=== PATIENT | female | born 1950 | race Caucasian/White ===

== ENCOUNTER 2018-12-20 21:51 | Emergency (ER) | payer MEDICARE ==
[~2018-12-20] VITALS: Ht 160 cm; Wt 53.6 kg
[2018-12-20 21:55] VITALS: TEMP 98.4
[2018-12-20] MEDS ORDERED: NORCO 325 MG-51 TAB PO (22:41)
[2018-12-20] MEDS ORDERED: LIDODERM 5% PATC1 EA TP (22:51)
[2018-12-20 22:52] VITALS: BP 123/84; PULSE 80
== END 2018-12-20 22:52 | disposition home or self-care (01) ==
LOC: COL.ER 21:51
DX: S30.0XXA Contusion of lower back and pelvis, initial encounter (principal); W10.9XXA Fall (on) (from) unspecified stairs and steps, initial encounter; Y92.009 Unspecified place in unspecified non-institutional (private) residence as the place of occurrence of the external cause
CPT/HCPCS: J1885

== ENCOUNTER 2022-01-20 04:25 | Observation (INO) | payer MEDICARE ==
[~2022-01-20] VITALS: Ht 160 cm; Wt 53.7 kg
[~2022-01-20 04:25] MED LIST: LIDODERM 5% PATC1 EA TP; NORCO 325 MG-51 TAB PO
[2022-01-20 05:16] LABS: COLLECTION METHOD CLEAN CATCH
[2022-01-20 05:18] LABS: BASO # 0.1 K/mm3 (0.0-0.2); BASO % 0.7 % (0.0-2.0); EOS # 0.6 K/mm3 (0.0-0.7); EOS % 5.5 % (0.0-4.0); GRAN # 7.1 K/mm3 (1.4-6.5); GRAN % 66.9 % (42.2-75.2); HEMATOCRIT 44.1 % (37.0-47.0); HEMOGLOBIN 14.7 g/dl (12.5-16.0); LYMPH # 2.2 K/mm3 (1.2-3.4); LYMPH % 20.8 % (20.0-51.0); MEAN CELL VOLUME 91 fl (80.0-100.0); MEAN CORPUSCULAR HEMOGLOBIN 30 pg (27-31); MEAN CORPUSCULAR HGB CONC 33 g/dl (33.0-37.0); MEAN PLATELET VOLUME 10.7 fl (7.4-10.4); MONO # 0.6 K/mm3 (0.1-0.6); MONO % 5.8 % (1.7-9.3); PLATELET COUNT 321 K/mm3 (130-400); RED BLOOD COUNT 4.86 M/mm3 (4.10-5.30); REDCELL DISTRIBUTION WIDTH-CV 13.6 % (11.5-14.5)
[2022-01-20 05:25] LABS: MUCOUS Present (NOT PRESENT); SQUAMOUS EPITHELIAL 0-2 /hpf (0-10); URINE BACTERIA None Seen /hpf (NONE SEEN); URINE RBC 0-2 /hpf (0-2)
[2022-01-20 05:27] LABS: URINE APPEARANCE Clear (CLEAR/HAZY); URINE BLOOD Negative (NEGATIVE); URINE COLOR Yellow (YELLOW); URINE GLUCOSE Negative (NEGATIVE); URINE KETONE Negative (NEGATIVE); URINE NITRATE Negative (NEGATIVE); URINE PROTEIN(semi-quant) Negative (NEGATIVE); URINE UROBILINOGEN 0.2 E.U/dL (0.2-1.0)
[2022-01-20 05:42] LABS: BILIRUBIN,TOTAL 0.4 mg/dL (0.2-1.2); CALCIUM 10.4 mg/dL (8.4-10.2); CREATININE, serum 0.99 mg/dL (0.57-1.11); POTASSIUM 4.4 mmol/L (3.5-4.5); TOTAL PROTEIN 7.3 gm/dL (6.2-8.1)
[2022-01-20 08:56] VITALS: BP 118/46; PULSE 71; TEMP 97.8
[2022-01-20] MEDS ORDERED: MASON NATURAL2000 IU PO (09:16)
[2022-01-20] MEDS ORDERED: OSCAL 500 TAB500 MG (09:16)
[2022-01-20 11:46] VITALS: BP 112/64; PULSE 67; TEMP 98.7
--- NOTE | 2022-01-20 12:03 | NUR ---
PATIENT ALERT AND ORIENTEX X4. VSS. PATIENT COMPLAINS OF PAIN 8/, REQUESTS PAIN MEDICATION. PATIENT ORIENTED TO FLOOR AND ROOM. PATIENT HAS LR RUNNING AT 125ML/HOUR IN LEFT WRIST. PATIENT NPO FOR SBO. PATIENT RESTING IN BED WITH CALL LIGHT NEAR.
--- NOTE | 2022-01-20 12:42 | NUR ---
NOTIFIED DR. RENE OF PT CONDITION AND NEW ORDERS RECIEVED. HOSPITALIST CONSULTED .
[2022-01-20 13:11] LABS: BASO % 0.4 % (0.0-2.0); EOS # 0.2 K/mm3 (0.0-0.7); EOS % 2.8 % (0.0-4.0); GRAN # 4.6 K/mm3 (1.4-6.5); GRAN % 61.7 % (42.2-75.2); HEMATOCRIT 43.3 % (37.0-47.0); HEMOGLOBIN 14.1 g/dl (12.5-16.0); LYMPH # 2.3 K/mm3 (1.2-3.4); LYMPH % 31.2 % (20.0-51.0); MEAN CELL VOLUME 92 fl (80.0-100.0); MEAN CORPUSCULAR HEMOGLOBIN 30 pg (27-31); MEAN CORPUSCULAR HGB CONC 33 g/dl (33.0-37.0); MEAN PLATELET VOLUME 11.1 fl (7.4-10.4); MONO # 0.3 K/mm3 (0.1-0.6); MONO % 3.6 % (1.7-9.3); PLATELET COUNT 301 K/mm3 (130-400); REDCELL DISTRIBUTION WIDTH-CV 13.6 % (11.5-14.5)
[2022-01-20 13:27] LABS: ALANINE AMINOTRANSFERASE 18 U/L (0-55); ALBUMIN 3.5 gm/dL (3.4-4.8); ALKALINE PHOSPHATASE 89 U/L (40-150); ANION GAP 9 mmol/L (7-16); AST,SGOT 19 U/L (5-34); BILIRUBIN,TOTAL 0.5 mg/dL (0.2-1.2); BLOOD UREA NITROGEN 14 mg/dL (10-20); CALCIUM 9.9 mg/dL (8.4-10.2); CARBON DIOXIDE 26 mmol/L (23-31); CHLORIDE 103 mmol/L (98-107); CREATININE, serum 1.11 mg/dL (0.57-1.11); GLUCOSE 270 mg/dL (70-99); POTASSIUM 3.8 mmol/L (3.5-4.5); SODIUM 138 mmol/L (136-145); TOTAL PROTEIN 6.6 gm/dL (6.2-8.1)
[2022-01-20 13:36] LABS: TROPONIN-I < 0.010 ng/mL (0.00-0.033)
[2022-01-20 15:35] VITALS: BP 127/66; PULSE 67; TEMP 96.8
--- NOTE | 2022-01-20 19:11 | NUR ---
RECEIVED CHANGE OF SHIFT REPORT FROM DAY SHIFT RN.
[2022-01-20 20:01] VITALS: BP 103/53; PULSE 77; TEMP 98.3
[2022-01-20 23:49] VITALS: BP 108/55; PULSE 78; TEMP 98.5
--- NOTE | 2022-01-21 00:02 | NUR ---
PATIENT REPORTED TO STAFF THAT SMALL FORMED STOOL PASSED THROUGH ILEOSTOMY.
[2022-01-21 04:08] VITALS: BP 109/59; PULSE 78; TEMP 98.6
--- NOTE | 2022-01-21 04:21 | NUR ---
PATIENT REPORTS SMALL AMOUNT OF OUTPUT IN ILEOSTOMY BAG, OBSERVED OUTPUT AIR WHEN ILEOSTOMY BAG CHECKED. DENIES NAUSEA, REPORTS HEADACHE HAS RETURNED WITH ABD CRAMPING DISCOMFORT, SEE MAR FOR PAIN MEDS GIVEN.
--- NOTE | 2022-01-21 05:56 | NUR ---
PATIENT RESTING QUIETLY AFTER IV MORPHINE GIVEN, BREATHING NONLABORED AND DOES NOT WAKE WHEN NURSING ENTER ROOM ON ROUNDS. IV FLUIDS RUNNING WITH NO PROBLEMS.
[2022-01-21 06:32] LABS: CALCIUM 8.7 mg/dL (8.4-10.2); CREATININE, serum 0.86 mg/dL (0.57-1.11); POTASSIUM 3.8 mmol/L (3.5-4.5)
--- NOTE | 2022-01-21 06:58 | NUR ---
CHANGE OF SHIFT REPORT GIVEN TO DAY SHIFT RNROSHAN.
[2022-01-21 07:05] LABS: BASO % 0.2 % (0.0-2.0); EOS # 0.2 K/mm3 (0.0-0.7); EOS % 2.3 % (0.0-4.0); GRAN # 7.2 K/mm3 (1.4-6.5); HEMATOCRIT 41.5 % (37.0-47.0); HEMOGLOBIN 13.2 g/dl (12.5-16.0); LYMPH # 1.4 K/mm3 (1.2-3.4); LYMPH % 14.4 % (20.0-51.0); MEAN CELL VOLUME 95 fl (80.0-100.0); MEAN CORPUSCULAR HEMOGLOBIN 30 pg (27-31); MEAN CORPUSCULAR HGB CONC 32 g/dl (33.0-37.0); MEAN PLATELET VOLUME 11.1 fl (7.4-10.4); MONO # 0.7 K/mm3 (0.1-0.6); MONO % 6.9 % (1.7-9.3); PLATELET COUNT 269 K/mm3 (130-400); RED BLOOD COUNT 4.35 M/mm3 (4.10-5.30); REDCELL DISTRIBUTION WIDTH-CV 13.8 % (11.5-14.5)
[2022-01-21 07:32] VITALS: BP 113/57; TEMP 98.3
--- NOTE | 2022-01-21 09:43 | NUR ---
Initial visit; Patient very sweet and states she is doing "ok." Patient and Manager Of Broadcast Content visited for a short time and Manager Of Broadcast Content offered God's blessings and thorough healing for her.
--- NOTE | 2022-01-21 10:19 | NUR ---
Shipping Clerk met with patient to discuss discharge planning. Patient lives in [place] with her , Lamont and son, Nomi (ph#[phone]). Patient sees Dr. Levy for primary care and obtains medications from [facility] with no difficulties. Patient does not use any DME, besides supplies for her ileostomy and is independent with ADLS. Patient states she keeps the house, does the laundry, and gardens. Patient advised her son, Nomi is DPOA-HC. Patient plans to return home at time of discharge. PT recommending home. Discharge Plan: Home
[2022-01-21 11:06] VITALS: BP 91/46; TEMP 98.5
--- NOTE | 2022-01-21 15:08 | NUR ---
Medical Imaging Specialist met with patient to present ESTRADA form. Patient requested time to read it. Melani MURGUIA also followed up to review ESTRADA. Patient declined to sign. SW placed form in chart.
[2022-01-21 15:38] VITALS: BP 112/58; PULSE 76; TEMP 97.8
[2022-01-21 19:43] VITALS: BP 122/57; PULSE 85; TEMP 98.8
--- NOTE | 2022-01-21 22:13 | NUR ---
Around 1999, primary nurse notified this nurse that patient was upset with cares and wanting to leave. This nurse went to room to talk to patient. and son in room with patient. Asked patient to explain to this nurse the situation. tated that she was here for a small bowel obstruction, which she does have a history of. Stated that she had not been tolerating a clear liquid diet at all today, as it was making her nauseous and have emesis. Stated that they put he on a low fiber diet, but, again, was not tolerating anything orally. Patient's MAR shows that she was given PRN Zofran around 1800. Patient continues to have nausea. Asked patient is she had ever had Phenergan for nausea, and stated that she did not know. Patient requesting IV fluids. This nurse stated that I would call the physician and try and get somehting else besides Zofran for her nausea, and to get her IV fluids restarted. Patient's stated that it did not matter what staff did at this point, that they were leaving the hospital to go to another hospital and wanted their discharge paperwork. Explained that we needed to call the physician and see if they would give discharge orders or if they would need to sign AMA paperwork, and they voiced undersanding. Updated ELBA Johns, and state that Dr. Gould needed to give the orders. Called Dr. Gould at approximately 2014 and updated on situation. Since patient is not medically cleared to leave and they are refusing care, AMA paperwork needed to be signed. Brought in paperwork to be signed for patient and signed at 2030. Requested to take IV out to left wrist, and patient denied having IV in. Explained to patient that we needed to make sure that IV was out prior to leaving hospital. started yelling that patient is dehydrated and that if IV was taken out then they would have a hard time putting one back in at the hospital they were going to take her to. This nurse explained that we understand, but it is a safety issue and that we are not allowed to let any patient leave with an IV. Patient still refusing primary nurse to look at left wrist for IV (patient was wearing long sleeves). This nurse called Institutional Research Coordinator and notified of situation, told to call security and that she was coming up. Called Security. Patient started walking off of floor with and son, security met outside of elevator and explained that IV had to be taken out. wood boat builder supervisor talked with patient and was agreeable to take out IV. Left facility around 2039.
== END 2022-01-21 20:40 | disposition left against medical advice (07) ==
LOC: COL.ER 04:25 → SURG 07:27
PROVIDERS: Emergency Medicine; Physician Assistant; ADMIT Surgery
DX: K56.600 Partial intestinal obstruction, unspecified as to cause (principal); Z90.49 Acquired absence of other specified parts of digestive tract; Z93.2 Ileostomy status; E16.2 Hypoglycemia, unspecified; E83.52 Hypercalcemia; Z28.310 Unvaccinated for COVID-19; Z28.9 Immunization not carried out for unspecified reason
CPT/HCPCS: G0378; J1885; J2270; J2405; J7040; J7042; J7120